=== PATIENT | female | born 1955 | race Caucasian/White ===

== ENCOUNTER → 2020-06-28 08:24 | Outpatient (CLI) | payer OTHER, SELFPAY ==
--- NOTE | 2020-06-28 | DI.ECHO.S_ITS ---
[facility] +---------+ : : [address] : [address] [place] : : : : [id number] : : : : Phone: [phone]+ Echocardiogram Report + + :Name: SHAYE RUEDA Study Date: 06/28/2020 Height: 64 in : :[facility] ReadingLocation: Weight: 207 lb : : Gender: Female BSA: 2.0 m2 : :: 1955 Age: 64 yrs BP: 165/90 mmHg: :Reason For Study: PAROXYSMAL ATRIAL FIBRILLATION : :Ordering Physician: AMEE, : :KRISTINA Performed By: Marietta Rendon : :Referring: KRISTINA RODRIGUEZ : + + Interpretation Summary 1) Normal left ventricular thickness, size, wall motion, and systolic function (EF 60-65%). 2) Normal right ventricular size and function. 3) No significant valvular abnormalities. 4) No prior Echo available for comparison. Procedure: A two-dimensional transthoracic echocardiogram with color flow and Doppler was performed. The study quality was technically adequate. There is no prior echocardiogram noted for this patient. The patient was in sinus rhythm with heart rates between 69-83 bpm during the exam. Left Ventricle: The left ventricle is normal in size and wall thickness. The ejection fraction is estimated to be 60-65%. Diastolic parameters suggest probable normal left ventricular diastolic function and normal filling pressures. Right Ventricle: The right ventricle is normal in size and function. Atria: The left atrium is moderately dilated. Right atrial size is normal. There is no Doppler evidence for an interatrial shunt. Mitral Valve: The mitral valve is normal in structure and function. There is trace mitral regurgitation. Aortic Valve: The aortic valve is trileaflet. The aortic valve opens well. There is no aortic valve stenosis. There is mild aortic regurgitation. Tricuspid Valve: The tricuspid valve is normal in structure and function. There is trace tricuspid regurgitation. Pulmonary artery pressures cannot be estimated because of the lack of a measurable TR jet velocity but the IVC suggests a CVP of around 3 mmHg. Pulmonic Valve: The pulmonic valve leaflets are thin and pliable; valve motion is normal. There is mild pulmonic regurgitation. Great Vessels: The aortic root is normal size. The dimensions of the ascending aorta are normal. The IVC is of normal diameter and collapses greater than 50% with a sniff. This suggests a low right atrial pressure of 3 mm Hg. Pericardium/ Pleura There is no pericardial effusion. There is no pleural effusion. MMode/2D Measurements & Calculations LVIDd: 5.1 cm LVOT diam: 2.0 cm LVIDs: 3.1 cm Ao root diam: 3.1 cm FS: 39.3 % asc Aorta Diam: 3.1 cm IVSd: 1.0 cm Ao Arch Diam (Prox Trans): 3.0 cm LVPWd: 0.89 cm LV mcmahon. diameter/BSA (cm/m^2): 2.6 LV sys. diameter/BSA (cm/m^2): 1.6 LA A2 area: 20.8 cm2 RA long axis: 4.6 cm LA A4 area: 20.4 cm2 RA area: 13.8 cm2 LA length (vol): 5.0 cm RA vol: 35.2 ml LA vol: 72.8 ml RA : 17.7 ml/m2 LA vol index: 36.7 ml/m2 IVC diam: 1.6 cm RVD1 (basal): 2.5 cm TAPSE: 1.7 cm Doppler Measurements & Calculations Ao V2 max: 188.0 cm/sec LVOT Max Stas: 124.9 cm/sec Ao V2 mean: 129.5 cm/sec LV V1 max P.2 mmHg Ao max P.1 mmHg LV V1 VTI: 26.9 cm Ao mean P.7 mmHg BEATRIZ(I,D): 2.1 cm2 Ao V2 VTI: 38.4 cm BEATRIZ(V,D): 2.0 cm2 sev ratio: 0.70 BEATRIZ indexed to BSA (cm^2/m^2): 1.1 MV E max stas: 71.7 cm/sec PA V2 max: 93.3 cm/sec MV A max stas: 74.7 cm/sec PA V2 mean: 61.0 cm/sec MV E/A: 0.96 PA mean P.7 mmHg Med Peak E' Stas: 7.0 cm/sec PA pr(Accel): 31.0 mmHg E/E' med: 10.3 Lat Peak E' Stas: 8.9 cm/sec E/E' lat: 8.1 E/e' average: 9.2 MV dec time: 0.20 sec SV(LVOT): 81.6 ml Reading Physician:12:43 PM
== END ==
PROVIDERS: Family Provider Orthopaedic Surgery; PCP Nurse Practitioner; Referring Provider Internal Medicine Cardiovascular Disease; Visit Provider Internal Medicine Cardiovascular Disease
DX: I35.1 Nonrheumatic aortic (valve) insufficiency (principal); I37.1 Nonrheumatic pulmonary valve insufficiency; I48.0 Paroxysmal atrial fibrillation
CPT/HCPCS: 93306